=== PATIENT | male | born 1975 | race Caucasian/White ===

== ENCOUNTER 2017-06-07 16:00 | Emergency (ER) | payer OTHER ==
[~2017-06-07] VITALS: Ht 177.8 cm; Wt 100.5 kg
[2017-06-07 16:19] VITALS: BP 154/79
[2017-06-07] MEDS: ONDANSETRON 4 MG/2 ML VIAL IVP ONE (18:44)
[2017-06-07] MEDS: NACL 0.9% 1,000 ML IV SCH (18:44)
[2017-06-07] MEDS: FAMOTIDINE 20 MG/2 ML VIAL IVP ONE (18:44)
[2017-06-07] MEDS: HYDROmorphone PFS 2 MG/ML SYR IVP ONE (18:45)
[2017-06-07] MEDS: GLYCOPYRROLATE 0.2 MG/ML VIAL IV ONE (18:45)
[2017-06-07 19:57] VITALS: BP 140/60
== END 2017-06-07 19:57 | disposition home or self-care (01) ==
LOC: MED 16:00
DX: R19.7 Diarrhea, unspecified (principal); R03.0 Elevated blood-pressure reading, without diagnosis of hypertension; R10.32 Left lower quadrant pain; R11.0 Nausea
CPT/HCPCS: 36415; 74176; 80053; 81001; 82150; 83690; 85025; 96361; 96374; 96375; 99285; J1170; J2405; J3490; J7030